=== PATIENT | female | born 1990 | race Hispanic/Latino ===

== ENCOUNTER → 2023-08-25 08:44 | Outpatient (CLI) | payer OTHER, SELFPAY ==
--- NOTE | 2023-08-25 08:51 | DI.MRI.S_ITS ---
PROCEDURE: MR LUMBAR SPINE WO CON INDICATIONS: Unspecified injury of lower back, initial encounte TECHNIQUE: Noncontrast sagittal T1 spin echo and T2 fast echo, sagittal STIR, and T2 fast spin echo through the lumbar spine. In cases with scoliosis, additional coronal T2 fast spin echo may be performed. COMPARISON: None. FINDINGS: Image quality: Excellent. Alignment and Curvature: There is normal bony alignment. Transitional anatomy with lumbarization of the S1 vertebral body. Bone Marrow: Marrow is of normal overall signal. No acute vertebral body compression fractures. Spinal Cord: Conus medullaris terminates at the L2 level. Visualized cord demonstrates normal signal and size. Paraspinous Soft Tissues: No paravertebral masses. T12-L1: Normal appearance. L1-L2: Normal appearance. L2-L3: Normal appearance. L3-L4: Normal appearance. L4-L5: Normal appearance. L5-S1: Disc desiccation and left paracentral disc protrusion. No central canal stenosis. Moderate left neural foraminal stenosis. No right neural foraminal stenosis. IMPRESSION: Disc desiccation and left paracentral disc protrusion at L5-S1 resulting in moderate left neural foraminal stenosis. No central canal stenosis. Dictated by: Elkin Zhu M.D. on 08/25/2023 at 10:50 Approved by: Elkin Zhu M.D. on 08/25/2023 at 10:52
== END ==
LOC: MRI 08:46
DX: S39.92XA Unspecified injury of lower back, initial encounter (principal); M51.27 Other intervertebral disc displacement, lumbosacral region; M48.07 Spinal stenosis, lumbosacral region; X58.XXXA Exposure to other specified factors, initial encounter
CPT/HCPCS: 72148

== ENCOUNTER → 2024-11-23 07:42 | Outpatient (CLI) | payer OTHER, SELFPAY ==
--- NOTE | 2024-11-23 07:43 | DI.US.S_ITS ---
PROCEDURE: US ABDOMEN COMPLETE INDICATIONS: FATTY LIVER; RENAL CYST TECHNIQUE: Real-time scanning was performed of the abdominal and retroperitoneal organs, with image documentation. COMPARISON: None. FINDINGS: Liver: Mildly echogenic appearance. Liver measures 16 cm. Gallbladder: Unremarkable Biliary ducts: Intrahepatic bile ducts are non-dilated. Extrahepatic bile duct caliber measures 5 mm. Normal is 6-7 mm or less in diameter, or 10 mm or less post-cholecystectomy. Pancreas: Visualized portions of the pancreas are sonographically normal. Spleen: Spleen is normal in size and homogeneous in echotexture. Kidneys: Kidneys are normal in size and echotexture. Right kidney measures 11 cm long; left kidney measures 11 cm long. No hydronephrosis. Anterior mid right renal echogenic 4 mm focus. No definite solid mass Aorta: Visualized aorta is normal in caliber at less than 3 cm. Iliacs: Proximal common iliac arteries are normal in caliber at less than 2.5 cm. IVC: Intrahepatic inferior vena cava is patent. Miscellaneous: No free abdominal fluid. IMPRESSION: Possible nonobstructing 4 mm right renal stone. No hydronephrosis. No solid mass is seen. Mildly echogenic liver, nonspecific, most commonly steatosis. Dictated by: Selvin Murillo M.D. on 11/23/2024 at 11:13 Approved by: Selvin Murillo M.D. on 11/23/2024 at 11:14
== END ==
PROVIDERS: Referring Provider Student in an Organized Health Care Education/Training Program; Visit Provider Student in an Organized Health Care Education/Training Program
DX: N28.1 Cyst of kidney, acquired (principal); E66.9 Obesity, unspecified
CPT/HCPCS: 76700